=== PATIENT | male | born 1975 | race Caucasian/White ===

== ENCOUNTER 2020-06-19 18:08 | Emergency (ER) | payer OTHER ==
[~2020-06-19] VITALS: Ht 180.3 cm; Wt 99.8 kg
[2020-06-19] MEDS ORDERED: LOSA100T31 PO (18:20)
[2020-06-19] MEDS ORDERED: IV NORMAL SALINE 1000 ML BAG IV ONE (19:00)
[2020-06-19 19:35] LABS: BASOPHILS % (AUTO) 0.6 % (0.0-2.0); EOSINOPHILS # (AUTO) 0.1 K/uL (0.0-0.7); EOSINOPHILS % (AUTO) 1.6 % (0.0-7.0); HEMATOCRIT 44.5 % (36.7-47.1); HEMOGLOBIN 15.1 g/dL (12.5-16.3); LYMPHOCYTES # (AUTO) 2.4 K/uL (20.0-40.0); LYMPHOCYTES % (AUTO) 30.3 % (20.5-51.5); MEAN CORPUSCULAR HEMOGLOBIN 31.2 uug (23.8-33.4); MEAN CORPUSCULAR HGB CONC 34 g/dL (32.5-36.3); MEAN CORPUSCULAR VOLUME 92.1 fL (73.0-96.2); MONOCYTES # (AUTO) 0.7 K/uL (2.0-10.0); MONOCYTES % (AUTO) 9.2 % (0.0-11.0); NEUTROPHILS # (AUTO) 4.6 K/uL (1.8-8.9); NEUTROPHILS % (AUTO) 58.3 % (38.5-71.5); PLATELET COUNT (AUTO) 266 K/uL (152-348); RED BLOOD CELL COUNT(AUTO) 4.83 MIL/uL (4.06-5.63); WHITE BLOOD COUNT (AUTO) 7.9 K/uL (3.6-10.2)
[2020-06-19 19:45] LABS: POTASSIUM 3.7 mmol/L (3.5-5.1)
[2020-06-19 20:17] VITALS: BP 148/82
== END 2020-06-19 20:23 | disposition home or self-care (01) ==
LOC: ER 18:18
DX: I49.1 Atrial premature depolarization (principal); R00.2 Palpitations; F10.10 Alcohol abuse, uncomplicated
CPT/HCPCS: 36415; 70030-TC; 71045; 84443; 85025; 93005; A4663; J7030